=== PATIENT | male | born 1960 | race Caucasian/White ===

== ENCOUNTER 2021-06-29 07:28 | Day surgery (SDC) | payer OTHER, SELFPAY ==
[2021-06-22 14:57] VITALS: BMI 28.4
--- NOTE | 2021-06-28 12:51 | HO.ANESPROP2 ---
Documented by User: Giselle Lopez NP 06/28/21 12:52 HPI - Anesthesia Eval Consult details Narrative: 61yo M for Colonoscopy [facility] Past Medical History Medical History (Updated 06/22/21 @ 14:48 by Mary Garcia RN) Myeloproliferative disorder Prostate cancer Surgical History Surgical History (Updated 06/22/21 @ 14:48 by Mary Garcia RN) History of prostate surgery Hx of lumbar discectomy Social History Social History (Updated 06/29/21 @ 08:25 by Kyara Bajwa MD) Patient Tobacco Use Status: Current everyday Tobacco user Tobacco use type: Cigarette Cigarette Packs Per Day: 1 Cigarettes Per Day: 20.0 Smoked in Last 30 Days: Yes Advance Directives: No Advance Directives Information Provided: Yes (informational brochure mailed) Advance Directives on File: No Meds Allergies Allergy/AdvReac Type Severity Reaction Status Date / Time bee pollen [bee stings] Allergy Unknown Unknown Verified 06/22/21 14:48 Home Medications Medication Instructions Recorded Confirmed Last Taken Type aspirin 325 mg tablet 325 mg PO DAILY 06/22/21 06/22/21 Unknown History Exam Exam Date and Time: June 28, 2021 1251 Height,Weight and Vital Signs: Height 5 ft 11 in Weight 92.533 kg Assessment and Plan Assessment Anesthesia Assessment: Chart Reviewed Documented by User: Kyara Bajwa MD 06/29/21 08:25 [facility] Past Medical History Medical History (Updated 06/22/21 @ 14:48 by Mary Garcia RN) Myeloproliferative disorder Prostate cancer Family History Family history of problems with anesthesia: No Surgical History Surgical History (Updated 06/22/21 @ 14:48 by Mary Garcia RN) History of prostate surgery Hx of lumbar discectomy History of Problems with Anesthesia: No Social History Social History (Updated 06/29/21 @ 08:25 by Kyara Bajwa MD) Patient Tobacco Use Status: Current everyday Tobacco user Tobacco use type: Cigarette Cigarette Packs Per Day: 1 Cigarettes Per Day: 20.0 Smoked in Last 30 Days: Yes Advance Directives: No Advance Directives Information Provided: Yes (informational brochure mailed) Advance Directives on File: No Meds Allergies Allergy/AdvReac Type Severity Reaction Status Date / Time bee pollen [bee stings] Allergy Unknown Unknown Verified 06/22/21 14:48 Home Medications Medication Instructions Recorded Confirmed Last Taken Type aspirin 325 mg tablet 325 mg PO DAILY 06/22/21 06/22/21 Unknown History Exam Height,Weight and Vital Signs: Height 5 ft 11 in Weight 92.533 kg Vital Signs Temp Pulse Resp BP Pulse Ox 06/29/21 08:00 98.1 F 86 18 120/89 95 Airway Mallampati Class: III (Overbite) TM Dist: >3cm Neck ROM: Full Loose/Missing/Broken Teeth: Yes (Some broken) Heart: RRR Lungs: CTAB Assessment and Plan Assessment Anesthesia Assessment: Anesthesia Plan Discussed Final Anesthetic Review Family History of Problems with Anesthesia: No History of Problems with Anesthesia: No NPO: Yes ASA Class: II Final Preanesthetic Review: No Changes in Pt Med Stat, Meds/Allgs Chart Reviewed, Consent Obtained/Reviewed and Anes Risks/Benef Reviewed Patient Risk: Low Procedure Risk: Low Assessment/Block/Sedation in SS: Assess/Block/Sedation-SS Anesthetic Plan Anesthetic Plan: MAC: Disposition: Standard PACU
[2021-06-29 08:00] VITALS: BP 120/89; PULSE 86; RESP 18; TEMP 36.7; O2SAT 95
[2021-06-29] MEDS: Lactated Ringers 1,000 ML 100 ML IVCONT (08:07)
--- NOTE | 2021-06-29 09:07 | MHC.SHP ---
Pre-Procedural Eval Section A Date of Service: 06/29/21 The patient is an INPATIENT: No Changes since office visit: No Cold of Flu in the past 2 weeks, No New Medical Problems, No Changes in Medication and No Patient answered all questions The History & Physical has been completed within 30 days and I have reviewed it.: Yes Section B Chief Complaint: screening Allergies: Allergies Allergy/AdvReac Type Severity Reaction Status Date / Time bee pollen [bee stings] Allergy Unknown Unknown Verified 06/22/21 14:48 Plan I have reviewed the history and physical and performed a pertinent physical examination on my patient. No changes have occurred unless specified.
[2021-06-29 10:46] VITALS: BP 116/79; PULSE 71; RESP 16; TEMP 36.3; O2SAT 98
--- NOTE | 2021-06-29 10:50 | P.BOP_ITS ---
Brief Operative Note Date of Service: 06/29/21 Pre-op diagnosis: screening Post-op diagnosis: same (colon polyps) Procedure: colonoscopy Surgeon: Joe Bundy Anesthesia: MAC Was an Photographic Intelligence Officer used for this Procedure?: No Estimated blood loss (mL): 5 Pathology: other (multiple polyps, see path request) Condition: stable Disposition: PACU
[2021-06-29 11:01] VITALS: BP 131/87; PULSE 65; RESP 16; TEMP 36.3; O2SAT 97
--- NOTE | 2021-06-29 11:15 | OP_ITS ---
SURGEON: Joe Bundy MD PREOPERATIVE DIAGNOSIS: POSTOPERATIVE DIAGNOSIS: PROCEDURE PERFORMED: ESTIMATED BLOOD LOSS: COMPLICATIONS: ANESTHESIA: ASSISTANTS: SPECIMENS: PROCEDURES PERFORMED: Colonoscopy to the terminal ileum with snare polypectomy, cauterization of colon polyp, endoscopic clip placement, and Renee ink injection. MEDICATIONS: Monitored anesthesia care. DESCRIPTION OF PROCEDURE: History and physical performed. The risks and benefits of the procedure were explained to the patient. Informed consent was obtained. The patient was placed in the left lateral decubitus position. A digital rectal examination was performed and was found to be normal. The Olympus pediatric video colonoscope was introduced into the rectum and advanced to the cecum without difficulty. The cecum was identified by transillumination, palpation, and identification of ileocecal valve. Examination was performed and the scope was removed. He tolerated the procedure well and was taken to recovery area in stable condition. The procedure was extended and difficult due to the large number of polyps, which required removal in piecemeal fashion and with a Renteria net, requiring multiple re-insertion and withdrawals of the colonoscope. FINDINGS: There were multiple colonic polyps present throughout the colon. A total of approximately 18 were removed using combination of snare cautery and piecemeal resection. The largest measured approximately 2.5 cm and was located at approximately 55 cm and required piecemeal resection recovery with a Renteria net and the site was marked with Renee ink for aiding in identification should further evaluation be necessary. One endoscopic clip was placed to close the mucosal defect following resection. There was no bleeding at any of the polypectomy sites at the termination of the procedure. In the rectum, three polyps were seen, 2 removed and the third was cauterized. Please see the pathology requisition for the location of the multiplle other polyps. There was mild sigmoid diverticulosis. Retroflexed examination showed small to moderate-sized internal hemorrhoids. IMPRESSION: 1. Colon polyps. 2. Extended/difficult procedure. RECOMMENDATIONS: 1. Follow up the biopsy results. 2. Consider repeat examination in 12 months pending pathology. MD ALHAJI Duran/FIFI / [id number] MTDD
== END 2021-06-29 11:25 | disposition home or self-care (01) ==
PROVIDERS: PCP Internal Medicine; Visit Provider Internal Medicine Gastroenterology
PROC: 0DJD8ZZ Inspection of Lower Intestinal Tract, Via Natural or Artificial Opening Endoscopic (ICD-10-PCS; CPT 45378; principal; 2021-06-29 09:10)
DX: Z12.11 Encounter for screening for malignant neoplasm of colon (principal); D12.3 Benign neoplasm of transverse colon; D12.4 Benign neoplasm of descending colon; D12.5 Benign neoplasm of sigmoid colon; D12.8 Benign neoplasm of rectum; C94.6 Myelodysplastic disease, not elsewhere classified; Z79.82 Long term (current) use of aspirin; Z85.46 Personal history of malignant neoplasm of prostate; F17.210 Nicotine dependence, cigarettes, uncomplicated
CPT/HCPCS: 45385; 45384; 45381; 88305

== ENCOUNTER 2021-11-04 08:53 | Outpatient (REF) | payer OTHER, SELFPAY ==
[2021-11-04 09:10] LABS: MANUAL DIFF FLAG NO
[2021-11-04 10:03] LABS: Basophils Absolute Auto 0.1 X10*3/uL (0.0-0.2); Basophils Percent Auto 0.9 % (0-2); Eosinophils Absolute Auto 0.3 X10*3/uL (0.0-0.4); Eosinophils Percent Auto 3.3 % (0-4); Hematocrit 44.4 % (42.0-52.0); Hemoglobin 13.6 g/dl (14.0-18.0); Imm Gran Abs Auto 0.02 X10*3/uL (0.00-0.03); Imm Gran Pct Auto 0.2 % (0.0-0.4); Lymphocytes Absolute Auto 2.5 X10*3/uL (1.2-4.9); Lymphocytes Percent Auto 28.3 % (20-40); Mean Corpuscular HGB Conc 30.6 g/dl (31.0-36.0); Mean Corpuscular Hemoglobin 26.6 pg (27.0-33.0); Mean Corpuscular Volume 86.7 fL (80.0-98.0); Mean Platelet Volume 11.9 fL (9.4-12.4); Monocytes Percent Auto 11.6 % (2-11); Neutrophils Absolute Auto 4.9 x10*3/uL (2.0-8.3); Neutrophils Percent Auto 55.7 % (45-73); Platelet Count 302 X10*3/uL (160-400); Red Blood Count 5.12 X10*6/uL (4.60-5.80); Red Cell Distribution Width 13.8 % (11.0-16.0); White Blood Count 8.8 X10*3/uL (4.8-10.8)
[2021-11-04 10:41] LABS: Alanine Aminotransferase 19 U/L (0-40); Albumin Level 4.3 g/dL (3.5-5.0); Alkaline Phosphatase 96 U/L (39-117); Anion Gap 13 (12-20); Aspartate Amino Transferase 15 U/L (5-37); Bilirubin Total 0.6 mg/dL (0.0-1.0); Blood Urea Nitrogen 15 mg/dL (9-16); Calcium 10.4 mg/dL (8.4-10.2); Carbon Dioxide 24 mmol/L (22-29); Chloride 105 mmol/L (96-108); Cholesterol 229 mg/dL; Estimated Glomerular Filt Rate > 60; Glucose Fasting 95 mg/dL (60-99); HDL Cholesterol 35 mg/dL; Iron 31 mcg/dL (45-160); LDL Cholesterol Calculated 164 mg/dl; Percent Iron Saturation 6 % (15-50); Potassium 5.2 mmol/L (3.3-5.1); Sodium 137 mmol/L (135-145); Total Iron Binding Capacity 502 mcg/dL (228-428); Total Protein 7.6 g/dL (6.5-8.0); Triglycerides 152 mg/dL; Unsaturated Iron Binding 471 ug/dL
[2021-11-04 10:53] LABS: Ferritin 10 ng/mL (20-250)
== END 2021-11-04 08:54 | disposition home or self-care (01) ==
LOC: HO.LAB 08:53
PROVIDERS: PCP Internal Medicine; Visit Provider Internal Medicine
DX: D75.1 Secondary polycythemia (principal); J44.9 Chronic obstructive pulmonary disease, unspecified; E78.00 Pure hypercholesterolemia, unspecified
CPT/HCPCS: 36415; 80053; 80061; 82728; 83540; 85025

== ENCOUNTER 2021-12-31 14:46 | Outpatient (REF) | payer OTHER, SELFPAY ==
--- NOTE | ~2021-12-31 | CT_ITS ---
EXAMINATION: CT CHEST SCREENING CLINICAL INFORMATION: Current smoker. 50 pack year history. COMPARISON: None. TECHNIQUE: Multidetector volumetric CT imaging of the chest is performed without contrast using low dose technique. Additional 2D coronal and sagittal reformatted images and axial 3D maximum intensity projection (MIP) images are generated on the CT workstation. This CT examination was performed using dose optimization techniques as appropriate, variously including the following: *Automated exposure control *Adjustment of mA and/or kV according to patient size (this includes techniques or standardized protocols for targeted exams where dose is matched to indication/reason for exam; i.e. extremities or head) *Use of iterative reconstruction technique DLP: 66 mGy-cm FINDINGS: LUNGS: There is subsegmental atelectasis at the lung bases. The lungs are otherwise clear. No endobronchial or endotracheal lesion. MEDIASTINUM: Coronary artery calcification. The mediastinum is otherwise normal. PLEURA: There is no pleural effusion. No pleural mass or thickening. AXILLA: No lymphadenopathy. UPPER ABDOMEN: There is a small low-attenuation lesion at the junction of the medial segment the left lobe and anterior segment of the right lobe of the liver. This probably represents a cyst. OSSEOUS STRUCTURES: There is a mild T12 vertebral body compression fracture. CT/CT lung screening IMPRESSION: Subsegmental atelectasis at the lung bases. Coronary artery calcification. Mild T12 compression fracture. ASSESSMENT: Lung-RADS category 1: Negative RECOMMENDATION: Annual low-dose chest CT follow-up recommended.
== END 2021-12-31 14:47 | disposition home or self-care (01) ==
LOC: HO.CT 14:46
PROVIDERS: Visit Provider Physician Assistant Medical
DX: Z12.2 Encounter for screening for malignant neoplasm of respiratory organs (principal); F17.210 Nicotine dependence, cigarettes, uncomplicated
CPT/HCPCS: 71271; G0296

== ENCOUNTER 2022-05-11 08:15 | Outpatient (REF) | payer OTHER, SELFPAY ==
[2022-05-11 09:44] LABS: Alanine Aminotransferase 19 U/L (0-40); Albumin Level 4.3 g/dL (3.5-5.0); Alkaline Phosphatase 77 U/L (39-117); Anion Gap 15 (12-20); Aspartate Amino Transferase 16 U/L (5-37); Bilirubin Total 0.3 mg/dL (0.0-1.0); Blood Urea Nitrogen 8 mg/dL (9-16); Calcium 10.2 mg/dL (8.4-10.2); Carbon Dioxide 26 mmol/L (22-29); Chloride 104 mmol/L (96-108); Cholesterol 217 mg/dL; Estimated Glomerular Filt Rate > 60; Glucose Random 88 mg/dL (60-115); HDL Cholesterol 38 mg/dL; LDL Cholesterol Calculated 157 mg/dl; Potassium 5.4 mmol/L (3.3-5.1); Sodium 140 mmol/L (135-145); Total Protein 7.3 g/dL (6.5-8.0); Triglycerides 113 mg/dL
== END 2022-05-11 08:16 | disposition home or self-care (01) ==
LOC: HO.LAB 08:15
PROVIDERS: PCP Internal Medicine; Visit Provider Internal Medicine
DX: E78.00 Pure hypercholesterolemia, unspecified (principal); J44.9 Chronic obstructive pulmonary disease, unspecified
CPT/HCPCS: 36415; 80053; 80061

== ENCOUNTER 2022-08-31 09:11 | Outpatient (REF) | payer OTHER, SELFPAY ==
[2022-08-31 10:23] LABS: Cholesterol 235 mg/dL; HDL Cholesterol 42 mg/dL; LDL Cholesterol Calculated 170 mg/dl; Triglycerides 116 mg/dL
== END 2022-08-31 09:12 | disposition home or self-care (01) ==
LOC: HO.LAB 09:11
PROVIDERS: PCP Internal Medicine; Visit Provider Internal Medicine
DX: E78.00 Pure hypercholesterolemia, unspecified (principal)
CPT/HCPCS: 36415; 80061

== ENCOUNTER 2022-11-15 07:50 | Day surgery (SDC) | payer OTHER, SELFPAY ==
[2022-11-15 08:41] VITALS: BMI 27.8
[2022-11-15 08:45] VITALS: BP 128/89; PULSE 92; RESP 18; TEMP 36.6; O2SAT 100
[2022-11-15] MEDS: Lactated Ringers 1,000 ML 50 ML IVCONT (09:01)
--- NOTE | 2022-11-15 09:02 | P.CONAN_ITS ---
HPI - Anesthesia Eval Consult details Narrative: colonoscopy COUNTS INCLUDE 234 BEDS AT THE [facility] Active Problems Active Problems: All Active Problems (Updated 11/14/22 @ 14:27 by Gail Martinez RN) Tubular adenoma of colon (Acute ~2020) Personal history of nicotine dependence (Acute) Past Medical History Medical History (Updated 11/14/22 @ 14:27 by Gail Martinez RN) Congenital bicuspid aortic valve History of prostate cancer Myeloproliferative disorder Personal history of nicotine dependence Tubular adenoma of colon (~2020) Family History Family history of problems with anesthesia: No Surgical History Surgical History (Updated 12/31/21 @ 14:39 by Zoe Marsh PA-C) History of colonoscopy (~2020) History of left inguinal hernia repair (~2021) History of lumbar discectomy (~1986) History of robot-assisted laparoscopic radical prostatectomy (~2018) History of Problems with Anesthesia: No Social History Social History (Updated 12/31/21 @ 14:45 by Zoe Marsh PA-C) Patient Tobacco Use Status: Current everyday Tobacco user Tobacco use type: Cigarette Cigarette Packs Per Day: 1 Cigarettes Per Day: 20.0 Years Smoked: onset 17, 1ppd x 44yrsm 40pyh Date Education Initiated: 11/15/22 Use of substances other than those prescribed or required for medical reasons: No Are you DNR?: No Advance Directives: No Advance Directives Information Provided: Yes Meds Allergies Allergy/AdvReac Type Severity Reaction Status Date / Time bee pollen [bee stings] Allergy Unknown Unknown Verified 06/22/21 14:48 Active Medications: Current Medications Lactated Ringer's (Lr) 1,000 mls @ 50 mls/hr IVCONT .Q20H SHAUN Last Admin: 11/15/22 09:01 Dose: 50 mls/hr Home Medications Medication Instructions Recorded Confirmed Last Taken Type aspirin 325 mg tablet 325 mg PO DAILY 06/22/21 11/15/22 Unknown History Exam Exam Date and Time: November 15, 2022901 Height,Weight and Vital Signs: Height 5 ft 11 in Weight 90.718 kg Last Vital Signs Temp 97.9 F 11/15/22 08:45 Pulse 92 11/15/22 08:45 Resp 18 11/15/22 08:45 BP 128/89 11/15/22 08:45 Pulse Ox 100 11/15/22 08:45 O2 Del Method Room Air 11/15/22 08:45 Airway Mallampati Class: II TM Dist: >3cm Neck ROM: Full Heart: rrr Lungs: cta Assessment and Plan Assessment Anesthesia Assessment: Anesthesia Plan Discussed, Smoking Cess. Discussed and Chart Reviewed Final Anesthetic Review Family History of Problems with Anesthesia: No History of Problems with Anesthesia: No NPO: Yes ASA Class: II Final Preanesthetic Review: No Changes in Pt Med Stat, Consent Obtained/Reviewed and Anes Risks/Benef Reviewed Patient Risk: Intermediate Procedure Risk: Low Anesthetic Plan Anesthetic Plan: MAC: Disposition: Standard PACU
--- NOTE | 2022-11-15 09:53 | P.BOP_ITS ---
Brief Operative Note Date of Service: 11/15/22 Pre-op diagnosis: screening Post-op diagnosis: same Surgeon: Joe Bundy Anesthesia: MAC Was an Cardiopulmonary Technician used for this Procedure?: No Estimated blood loss (mL): 2 Pathology: other Condition: stable Disposition: PACU
[2022-11-15 09:55] VITALS: BP 95/63; PULSE 79; RESP 16; TEMP 36.3; O2SAT 94
[2022-11-15 10:10] VITALS: BP 115/74; PULSE 84; RESP 16; O2SAT 99
[2022-11-15 10:17] VITALS: BP 117/80; PULSE 72; RESP 16; TEMP 36.5; O2SAT 97
--- NOTE | 2022-11-15 10:28 | OP_ITS ---
DATE OF SERVICE: 11/15/2022 SURGEON: Joe Bundy MD INDICATIONS: Colon cancer screening and prior history of adenomatous colon polyps. PREOPERATIVE DIAGNOSIS: POSTOPERATIVE DIAGNOSIS: PROCEDURE PERFORMED: Colonoscopy to the terminal ileum with snare polypectomy. ESTIMATED BLOOD LOSS: COMPLICATIONS: ANESTHESIA: Monitored anesthesia care. ASSISTANTS: SPECIMENS: DESCRIPTION OF PROCEDURE: A history and physical was performed. The risks and benefits of the procedure were explained to the patient. Informed consent was obtained. The patient was placed in the left lateral decubitus position. A digital rectal exam was performed and was found to be normal. The Olympus pediatric video colonoscope was introduced into the rectum and advanced to the cecum without difficulty. The cecum was identified by transillumination, palpation, and identification of ileocecal valve. Examination was performed. The scope was removed. He tolerated the procedure well and was returned to the recovery area in stable condition. FINDINGS: The terminal ileum was examined and appeared normal. The visualized colonic mucosa was normal. There was a single polyp measuring approximately 8 mm at 55 cm, which was removed with a hot snare and recovered via suction. No other polyps were identified. Retroflexed examination showed internal hemorrhoids. There was mild sigmoid diverticulosis. The quality of the prep was good. IMPRESSION: Colon polyp. RECOMMENDATION: Follow up the biopsy results. MD ALHAJI Duran/NILDAL / [id number]
== END 2022-11-15 10:40 | disposition home or self-care (01) ==
PROVIDERS: PCP Internal Medicine; Visit Provider Internal Medicine Gastroenterology
PROC: 0DJD8ZZ Inspection of Lower Intestinal Tract, Via Natural or Artificial Opening Endoscopic (ICD-10-PCS; CPT 45378; principal; 2022-11-15 09:20)
DX: Z12.11 Encounter for screening for malignant neoplasm of colon (principal); Z86.010 Personal history of colon polyps; Z80.0 Family history of malignant neoplasm of digestive organs; D12.5 Benign neoplasm of sigmoid colon; K57.30 Diverticulosis of large intestine without perforation or abscess without bleeding; K64.8 Other hemorrhoids; D47.1 Chronic myeloproliferative disease; D75.839 Thrombocytosis, unspecified; Q23.1 Congenital insufficiency of aortic valve; Z79.82 Long term (current) use of aspirin; Z85.46 Personal history of malignant neoplasm of prostate; F17.210 Nicotine dependence, cigarettes, uncomplicated
CPT/HCPCS: 45385; 88305

== ENCOUNTER 2022-12-07 10:59 | Outpatient (REF) | payer OTHER, SELFPAY ==
[2022-12-07 12:43] LABS: Alanine Aminotransferase 15 U/L (0-40); Albumin Level 4.1 g/dL (3.5-5.0); Alkaline Phosphatase 82 U/L (39-117); Anion Gap 13 (12-20); Aspartate Amino Transferase 16 U/L (5-37); Bilirubin Total 0.5 mg/dL (0.0-1.0); Blood Urea Nitrogen 10 mg/dL (9-16); Calcium 9.5 mg/dL (8.4-10.2); Carbon Dioxide 26 mmol/L (22-29); Chloride 107 mmol/L (96-108); Estimated Glomerular Filt Rate > 60; Glucose Random 83 mg/dL (60-115); Sodium 141 mmol/L (135-145)
== END 2022-12-07 11:00 | disposition home or self-care (01) ==
LOC: HO.LAB 10:59
PROVIDERS: PCP Internal Medicine; Visit Provider Internal Medicine
DX: E78.00 Pure hypercholesterolemia, unspecified (principal); J44.9 Chronic obstructive pulmonary disease, unspecified
CPT/HCPCS: 36415; 80053

== ENCOUNTER 2023-01-02 09:28 | Outpatient (REF) | payer OTHER, SELFPAY ==
--- NOTE | ~2023-01-02 | CT_ITS ---
EXAMINATION: CT CHEST SCREENING CLINICAL INFORMATION: Current smoker 50 pack year history COMPARISON: Previous chest CT December 2021 TECHNIQUE: Multidetector volumetric CT imaging of the chest is performed without contrast using low dose technique. Additional 2D coronal and sagittal reformatted images and axial 3D maximum intensity projection (MIP) images are generated on the CT workstation. This CT examination was performed using dose optimization techniques as appropriate, variously including the following: *Automated exposure control *Adjustment of mA and/or kV according to patient size (this includes techniques or standardized protocols for targeted exams where dose is matched to indication/reason for exam; i.e. extremities or head) *Use of iterative reconstruction technique DLP: 57 mGy-cm FINDINGS: LUNGS: No pulmonary nodule. Scarring or chronic subsegmental atelectasis at the lung bases. MEDIASTINUM: The mediastinum is normal. CORONARY ARTERY CALCIFICATION: Moderate. Aortic valve calcification. Upper normal-size thoracic aorta. PLEURA: There is no pleural effusion. No pleural mass or thickening. AXILLA: No lymphadenopathy. UPPER ABDOMEN: Stable low-attenuation liver lesion probably representing a cyst. OSSEOUS STRUCTURES: Unremarkable. CT/CT lung screening IMPRESSION: Stable mild T12 compression fracture. ASSESSMENT: Lung-RADS category 1: Negative RECOMMENDATION: Annual low-dose chest CT follow-up recommended.
== END 2023-01-02 09:29 | disposition home or self-care (01) ==
LOC: HO.CT 09:28
PROVIDERS: PCP Internal Medicine; Visit Provider Physician Assistant Medical
DX: Z12.2 Encounter for screening for malignant neoplasm of respiratory organs (principal); F17.210 Nicotine dependence, cigarettes, uncomplicated
CPT/HCPCS: 71271

== ENCOUNTER → 2024-05-02 12:52 | Outpatient (BNV) | payer OTHER, SELFPAY | PROVIDERS: PCP Internal Medicine; Visit Provider Physical Medicine & Rehabilitation | DX: G56.03 Carpal tunnel syndrome, bilateral upper limbs (principal); G56.22 Lesion of ulnar nerve, left upper limb | CPT/HCPCS: 95886; 95911 ==

== ENCOUNTER 2024-05-02 12:53 | Outpatient (REF) | payer OTHER, SELFPAY ==
--- NOTE | 2024-05-02 | EMG_ITS ---
Chief complaint: Bilateral hand numbness and poor dexterity, history of prostate cancer status post surgery, awaiting radiation Reason for referral: Evaluate for Carpal Tunnel Syndrome Referred by: Dr. Smith Procedure done: Bilateral upper extremities NCS/EMG Precautions and/or limitations: None The limb temperature was monitored continuously and remained between 32-36 degrees C during the performance of the NCS. Ulnar motor NCS was performed with moderate elbow flexion between 70-90 degrees, with across-elbow distance of 10 cm. Nerve Conduction Studies Anti Sensory Summary Table ?Stim Site NR Onset (ms) Norm Onset (ms) Peak (ms) Norm Peak (ms) O-P Amp (?V) Norm O-P Amp Site1 Site2 Delta-0 (ms) Dist (cm) Celso (m/s) Norm Celso (m/s) Left Median Anti Sensory (2nd Digit) Wrist NR <3.6 >10 Wrist 2nd Digit 14.0 Right Median Anti Sensory (2nd Digit) Wrist NR <3.6 >10 Wrist 2nd Digit 14.0 Right Radial Anti Sensory (Thumb) Forearm ? 1.6 2.1 <3.1 8.8 Forearm Thumb 1.6 0.0 Left Ulnar Anti Sensory (5th Digit) Wrist NR <3.7 >15.0 Wrist 5th Digit 14.0 Right Ulnar Anti Sensory (5th Digit) Wrist ? 2.3 3.1 <3.7 20.8 >15.0 Wrist 5th Digit 2.3 14.0 61 Motor Summary Table ?Stim Site NR Onset (ms) Norm Onset (ms) O-P Amp (mV) Norm O-P Amp iAmp (mV) Amp (1st) (%) Site1 Site2 Delta-0 (ms) Dist (cm) Celso (m/s) Norm Celso (m/s) Left Median Motor (Abd Poll Brev) Wrist ? 13.8 <3.9 0.5 >4.5 0.7 100.0 Elbow Wrist 5.4 25.0 46 >45 Elbow ? 19.2 0.4 0.6 80.0 Right Median Motor (Abd Poll Brev) Wrist NR <3.9 >4.5 Elbow Wrist 0.0 >45 Elbow NR Right Ulnar Motor (Abd Dig Minimi) Wrist ? 3.0 <3.0 6.4 >5 8.0 100.0 B Elbow Wrist 4.3 24.0 56 >45 B Elbow ? 7.3 6.0 7.7 93.8 A Elbow B Elbow 3.6 10.0 28 >45 A Elbow ? 10.9 5.9 7.3 92.2 Right Ulnar Motor (Abd Dig Minimi) Wrist ? 2.6 <3.0 8.4 >5 11.1 100.0 B Elbow Wrist 3.6 22.0 61 >45 B Elbow ? 6.2 8.2 10.9 97.6 A Elbow B Elbow 1.5 10.0 67 >45 A Elbow ? 7.7 7.9 10.8 94.0 EMG ?Side Muscle Nerve Root Ins Act Fibs Psw Amp Dur Poly Recrt Int Pat Comment Right 1stDorInt Ulnar C8-T1 Nml Nml Nml Nml Nml 0 Nml Complete Right FlexCarRad Median C6-7 Nml Nml Nml Nml Nml 0 Nml Complete Right Biceps Musculocut C5-6 Nml Nml Nml Nml Nml 0 Nml Complete Right Triceps Radial C6-7-8 Nml Nml Nml Nml Nml 0 Nml Complete Right Deltoid Axillary C5-6 Nml Nml Nml Nml Nml 0 Nml Complete Left 1stDorInt Ulnar C8-T1 Incr 1+ 1+ Incr Incr 0 Nml Complete Left Biceps Musculocut C5-6 Nml Nml Nml Nml Nml 0 Nml Complete Left Triceps Radial C6-7-8 Nml Nml Nml Nml Nml 0 Nml Complete Left Deltoid Axillary C5-6 Nml Nml Nml Nml Nml 0 Nml Complete Left FlexCarpiUln Ulnar C8,T1 Nml Nml Nml Nml Nml 0 Nml Complete FINDINGS: Right median motor and sensory nerves no responses. Left median motor nerve showed prolonged distal latency, small amplitude and normal conduction velocity. Left ulnar motor nerve showed normal distal latency, normal amplitude and slow conduction velocity across the elbow. Bilateral median sensory nerves absent response. Right ulnar sensory nerve absent response. All other nerves tested were within normal. Concentric needle EMG was performed in selected muscles of the bilateral upper extremities. Study revealed signs of electric abnormalities as shown in the table above. Left FDI showed increased insertional activity, PSWs, fibrillations, and increased duration and amplitude. IMPRESSION: 1. This is an abnormal study. 2. There is electrodiagnostic evidence for right severe and left moderate-severe median neuropathy at the wrist, consistent with Carpal Tunnel Syndrome. 3. There is electrodiagnostic evidence for left ulnar neuropathy at the elbow, 4. There is no electrodiagnostic evidence for brachial plexopathy or cervical radiculopathy. Thank you for your kind referral. Leah Hernandez MD, ANDRES Board Certified, [employer] and [employer] (ABPMR) Board Certified, [employer] Electro[employer] (ABEM) CODIN [phone] MTDD
== END 2024-05-02 12:54 | disposition home or self-care (01) ==
LOC: HO.NEURO 12:53
PROVIDERS: PCP Internal Medicine; Visit Provider Internal Medicine
DX: R20.2 Paresthesia of skin (principal)
CPT/HCPCS: 95886; 95911

== ENCOUNTER 2025-01-17 10:26 | Outpatient (AMB) | payer OTHER, SELFPAY ==
--- NOTE | 2025-01-17 10:42 | MHC.PC.OV ---
Vital Signs 01/17/25 10:45 Height 5 ft 10.5 in Weight 191 lb BMI 27.0 BP 130/80 Blood Pressure Location Rt brachial Position Sitting Pulse 78 Pulse Source Pulse Oximeter Temp 98.2 F Temp Source Axillary Pulse Oximetry (%) 98 Oxygen Delivery Method Room Air Intake Visit Reasons: Routine Media Account Executive Required: No Accompanied by: Self / Same As Patient Allergies bee pollen [bee stings] Allergy (Unknown, Verified 01/17/25 10:48) Unknown Tobacco use date assessed: 01/17/25 Dental Screening Dental Screen Date: 01/17/25 Did you have a dental visit in the last 12 months?: Yes Did you have a dental problem in the last 6 months where you did not have access to dental care?: No HPI HPI Comments History of Present Illness Details 64 year old with a past medical history of COPD, tobacco use, prostate cancer, MDS, PV, , hyperlipidemia, h/o back surgery presenting for follow up. Last seen by pcp in Jul CV: On ASA. Echocardiogram scheduled for January [address] Mejía on the . Heme/onc: prostate ca with h/o radiation therapy-Dr Law (rad once) 2023-next appt apr, Dr Lawrence. MDS, PV Followed by Marco at [facility]-mar 26. Recent psa was good. Having some cough, congestion, more shortness of breath since a cold a few months back MSK: history of lumbar diskectomy with increased low back pain over the past few years. previously seeing Dr fatima LDCT-missed last year plans to do it this year. Colonoscopy 11/2022-[address] Bundy ROS see HPI PHYSICAL EXAM: GENERAL: Alert and oriented x 3. NAD EYES: EOMI. Anicteric. HENT: Moist mucous membranes. No scleral icterus. No cervical lymphadenopathy. LUNGS: Clear to auscultation bilaterally. CARDIOVASCULAR: Regular rate and rhythm. systolic murmur ABDOMEN: Soft, non-tender +bs EXTREMITIES: No edema. Non-tender. SKIN: No rashes or lesions. Warm. NEUROLOGIC: No focal neurological deficits. CN II-XII grossly intact PSYCHIATRIC: Cooperative. Appropriate mood and affect [facility] Medical History (Updated 01/17/25 @ 11:17 by Susan Dawson MD) History of prostate cancer Myeloproliferative disorder Congenital bicuspid aortic valve Tubular adenoma of colon (~2020) Nicotine dependence, cigarettes, uncomplicated Surgical History History of left inguinal hernia repair (~2021) History of robot-assisted laparoscopic radical prostatectomy (~2018) History of colonoscopy (~11/15/22) History of lumbar discectomy (~1986) Family History Mother No problems noted. Father No problems noted. Social History Housing: House Patient Tobacco Use Status: Current everyday Tobacco user Tobacco use type: Cigarette Cigarette Packs Per Day: 1 Cigarettes Per Day: 20.0 Years Smoked: onset 17, 1ppd x 44yrsm 40pyh e-Cigarette/Vaping Use: Currently Using service: No Current occupational status: retired Cognitive needs: No Hearing needs: Yes (both hear hearing aids. ) Vision needs: No Questionnaire PHQ-9 Over the last 2 weeks, how often have you been bothered by any of the following problems? 1. Little interest or pleasure in doing things: not at all 2. Feeling down, depressed, or hopeless: not at all 3. Trouble falling or staying asleep, or sleeping too much: not at all 4. Feeling tired or having little energy: not at all 5. Poor appetite or overeating: not at all 6. Feeling bad about yourself - or that you are a failure or have let yourself or your family down: not at all 7. Trouble concentrating on things, such as reading the newspaper or watching television: not at all 8. Moving or speaking so slowly that other people could have noticed. Or the opposite - being so fidgety or restless that you have been moving around a lot more than usual: not at all 9. Thoughts that you would be better off or of hurting yourself in some way: not at all Total score: 0 Source: Developed by Drs. David Guerrero, Roselyn Nuñez, Norbert Amador and colleagues, with an educational ayla from [employer]. Thrive Questionnaire Date Thrive assessed: 01/17/25 I am a: Patient Within the past 12 months, did the food you bought not last and you didn't have the money to get more?: Never true Within the past 12 months, did you worry whether your food would run out before you got money to buy more?: Never true Do you have trouble paying for medicines?: No Do you have trouble getting transportation to medical appointments?: No Do you have trouble paying your heating and electricity bill?: No Do you have trouble taking care of your child, family member or friend?: No Do you have trouble with day-to-day activities such as bathing, preparing meals, shopping, managing finances, etc.?: No Are you currently unemployed and looking for a job?: No Are you interested in more education?: No THRIVE Score: 0 AUDIT C Alcohol Use Questionnaire (AUDIT-C) 1. How often do you have a drink containing alcohol?: Monthly or less 2. How many drinks containing alcohol do you have on a typical day when you are drinking?: 1 or 2 3. How often do you have six or more drinks on one occasion?: Less than monthly Total Score: 2 XUAN-7 AMB Questionnaire XUAN-7 Date XUAN - 7 assessed: 01/17/25 Feeling nervous, anxious, or on edge: 0 = Not at all Not being able to stop or control worryin = Not at all Worrying too much about different things: 0 = Not at all Trouble relaxin = Not at all Being so restless that it is hard to sit still: 0 = Not at all Becoming easily annoyed or irritable: 0 = Not at all Feeling afraid as if something awful might happen: 0 = Not at all Total XUAN-7 score (0-4 normal; 5-9 mild; 10-14 moderate; 15-21 severe): 0 Source: Developed by Drs. David Guerrero, Roselyn Nuñez, Norbert Amador and colleagues, with an educational ayla from [employer]. Physical exam (Primary Care) Vital Signs: Last Vital Signs Temp 98.2 F 01/17/25 10:45 Pulse 78 01/17/25 10:45 BP 130/80 01/17/25 10:45 Pulse Ox 98 01/17/25 10:45 Oxygen Delivery Method Room Air 01/17/25 10:45 BMI result Body Mass Index 27.0 Tobacco/Smoking Status: Tobacco use Status Tobacco use date assessed 01/17/25 01/17/25 10:45 Patient Tobacco Use Status Current everyday Tobacco 01/17/25 10:45 Tobacco use type Cigarette 01/17/25 10:45 e-Cigarette/Vaping Use Currently Using 01/17/25 10:45 PHQ-9: PHQ-9 Score PHQ-9: Total score 0 01/17/25 10:45 Thrive Assessment: Date of Thrive Assessment Date Thrive assessed 01/17/25 01/17/25 10:45 Coding Level of Care Code New Pt Level 4 (75983) Complex EM visit Add On G2211 Diagnoses Chronic low back pain, unspecified back pain laterality, unspecified whether sciatica present M54.50; G89.29 Chronicity: chronic Back pain laterality: unspecified Sciatica presence: unspecified whether sciatica present Mild intermittent asthma with acute exacerbation J45.21 Asthma severity: mild Asthma persistence: intermittent Asthma complication type: with acute exacerbation Congenital bicuspid aortic valve Q23.1 Myeloproliferative disorder D47.1 Assessment & Plan Assessment & Plan (1) Low back pain: Code(s): M54.50 - Low back pain, unspecified Category: Medical Qualifiers: Chronicity: chronic Back pain laterality: unspecified Sciatica presence: unspecified whether sciatica present Qualified Code(s): M54.50 - Low back pain, unspecified; G89.29 - Other chronic pain (2) Asthma: Code(s): J45.909 - Unspecified asthma, uncomplicated Category: Medical Qualifiers: Asthma severity: mild Asthma persistence: intermittent Asthma complication type: with acute exacerbation Qualified Code(s): J45.21 - Mild intermittent asthma with (acute) exacerbation (3) Congenital bicuspid aortic valve: Code(s): Q23.1 - Congenital insufficiency of aortic valve Category: Medical (4) Myeloproliferative disorder: Comment: (previous tx w/hydroxyurea - now does theraputic phlebotomy monthly - follows with oncology) Code(s): D47.1 - Chronic myeloproliferative disease Category: Medical Plan 64 yo to establish care Past medical, surgical, social reviewed Back pain-referral physiatry Asthma/copd exacerbation-zpak prednisone albuterol. call for ldct follow up Labs ordered Orders: Orders Comprehensive Met. Panel Today D47.1 - Chronic myeloproliferative disease, Z13.0 - Encounter for screening for diseases of the blood and blood-forming organs and certain disorders involving the immune mechanism, Z13.220 - Encounter for screening for lipoid disorders, Z13.228 - Encounter for screening for other metabolic disorders Lipid Panel with Reflex Today D47.1 - Chronic myeloproliferative disease, Z13.0 - Encounter for screening for diseases of the blood and blood-forming organs and certain disorders involving the immune mechanism, Z13.220 - Encounter for screening for lipoid disorders, Z13.228 - Encounter for screening for other metabolic disorders Hemoglobin A1c Today D47.1 - Chronic myeloproliferative disease, Z13.0 - Encounter for screening for diseases of the blood and blood-forming organs and certain disorders involving the immune mechanism, Z13.220 - Encounter for screening for lipoid disorders, Z13.228 - Encounter for screening for other metabolic disorders Referrals Physical Medicine and Rehabilitation Referral M54.50 - Low back pain, unspecified Medications: New prednisone 40 mg (2 x 20 mg) PO DAILY 6 tabs 0RF azithromycin For 250 mg dose pack: take 500 mg today (day 1), then 250 mg for 4 days (days 2-5) PO 6 tabs 0RF albuterol sulfate 90 mcg/actuation 2 inhalations inhalation QID PRN 8.5 grams 0RF shortness of breath or wheezing J45.909 - Unspecified asthma, uncomplicated
[2025-01-17 10:45] VITALS: BP 130/80; PULSE 78; TEMP 36.8; O2SAT 98; BMI 27.0
--- OUTSIDE RECORDS SUMMARY | 2025-01-17 11:13 | XMS_ITS | Patient Health Record ---
Author Organization [facility] Address [address] [place] [id number] Care Team Providers Care Principal Investigator Name Role Phone Sergio Smith MD Primary Care Provider Joe Reed Jr Unavailable Allergies Allergen (clinical drug ingredient) Drug/Non Drug Allergy documented on EMR Reaction Allergy Type Onset Date Status Bee Sting Unknown Allergy Active Reason For Referral No Information Medications Medication SIG (Take, Route, Frequency, Duration) Notes Start Date End Date Status MiraLax (colon prep) 17 GM/SCOOP mixed with Gatorade or Crystal Light Orally begin at 5:00 p.m. the day before the procedure for 1 day 10/10/2022 Active Aspirin 325 MG 1 tablet Orally Once a day for 30 day(s) Active Immunizations Vaccine Route Administration Date Status Comme nts Influenza Unknown 06/23/2020 Administered Influenza Unknown 06/28/2022 Administered Social History Tobacco Use: Social History Observation Description Date Details (start date - stop date) Current Smoker NA - NA Tobacco Use/Smoking Question Answer Notes Patient is a current smoker Alcohol Screen Question Answer Notes Did you have a drink contain ing alcohol in the past year? Yes How often did you have a dri nk containing alcohol in the past year? 4 or more times a week (4 points) How many drinks did you have on a typical day when you were drinking in the past year? 5 or 6 drinks (2 points) How often did you have 6 or more drinks on one occasion in the past year? Monthly (2 points) Points 8 Interpretation Positive Section Notes: Smokes one pack per day, alc ohol uses 6 per day. Smokes one pack per day, alc ohol uses 6 per day. Problems Problem Type SNOMED Code ICD Code Onset Dates Problem Status W/U Status Risk Notes Problem 349308132 Colon cancer screening (Z12.11) Active confirmed Problem 784465272 Personal history of colonic polyps (Z86.010) Active confirmed Problem 319365875 Long-term use of aspirin therapy (Z79.82) Active confirmed Plan Of Treatment Future Test Test Name Order Date COLONOSCOPY 06/16/2021 COLONOSCOPY 10/10/2022 Insurance Providers Payer Name Payer Address Payer Phone Subscriber Number Group Number Insured Name Patient Relationship to Insured Coverage Start Date Coverage End Date [facility] [address] [address] [place], [place] [id number] DOREEN CASILLAS Self - patient is the insured Medical (General) History Medical History History ICD Code prostate cancer, stage III, contained to prostate. myloproliferative disorder, elevated platelets and red blood cell, previous treatment with hydroxyurea and watery Colon polyps, colonoscopy , 18 adenomas, one with high-grade dysplasia, one year followup Congenital bicuspid aortic valve Surgical History Surgery Date(Month/Year) lumbar 1987 Prostatectomy 2008 hernia repair
== END 2025-01-17 11:14 | disposition home or self-care (01) ==
LOC: HO.HMCHD 10:26
PROVIDERS: PCP Internal Medicine; Visit Provider Internal Medicine
DX: M54.50 Low back pain, unspecified (principal); G89.29 Other chronic pain; J45.21 Mild intermittent asthma with (acute) exacerbation; Q23.1 Congenital insufficiency of aortic valve; D47.1 Chronic myeloproliferative disease

== ENCOUNTER → 2025-01-17 10:26 | Outpatient (BNVA) | payer OTHER, SELFPAY | PROVIDERS: PCP Internal Medicine; Visit Provider Internal Medicine | DX: M54.50 Low back pain, unspecified (principal); G89.29 Other chronic pain; J45.21 Mild intermittent asthma with (acute) exacerbation; Q23.1 Congenital insufficiency of aortic valve; D47.1 Chronic myeloproliferative disease | CPT/HCPCS: 99202 ==

== ENCOUNTER 2025-07-18 08:57 | Outpatient (AMB) | payer OTHER, SELFPAY ==
--- NOTE | 2025-07-18 09:20 | MHC.PC.OV ---
Vital Signs 07/18/25 09:24 Height 5 ft 10.47 in Weight 191 lb BMI 27.0 BP 140/88 H Blood Pressure Location Lt brachial Position Sitting Respiration 18 Pulse 78 Pulse Source Pulse Oximeter Temp 98.7 F Temp Source Temporal Artery Scan Pulse Oximetry (%) 95 Oxygen Delivery Method Room Air Intake Visit Reasons: 6 Mo F/U Inspector Agricultural Commodities Required: No Accompanied by: Self / Same As Patient Allergies bee pollen (bee stings) Allergy (Unknown, Verified 07/18/25 09:22) Unknown Medication List - Last Reconciled 07/18/25 by Fredo Bassett MD aspirin 325 mg PO DAILY nicotine apply 1-21 mg NICOTINE PATCH daily for 28 days; follow with 1-14 mg PATCH daily for 14 days, then 1-7mg PATCH daily for 14 days transdermal Tobacco use date assessed: 01/17/25 Fall risk assessment: No Falls in past year Last assessed Fall Risk: 07/18/25 Dental Screening Dental Screen Date: 01/17/25 HPI HPI Comments History of Present Illness Details History of Present Illness The patient is a 65 year old male presenting with numbness in both hands. He reports that this issue has been ongoing for years, causing difficulty with fine motor skills such as buttoning his shirt. The sensation affects the first three and a half fingers of his hands but does not involve any pain. A prior nerve conduction study confirmed carpal tunnel syndrome, but he did not receive treatment due to a change in providers. He has a history of myeloproliferative disorder, for which his platelet count was almost a million. He was treated with hydroxyurea for six to seven years, and his hands had previously turned black. He is currently followed by Dr. Lara at [facility] for this condition, and his blood counts have reportedly stabilized. The patient has a history of prostate cancer, for which he underwent radiation therapy. He is monitored by Dr. Law every six months. His cardiac history includes a diagnosis of mild aortic stenosis with a tri-leaflet aortic valve, for which he sees Dr. Armando Saul at [facility] and has an echocardiogram annually. His blood pressure is typically around 124/70 mmHg but was in the 140s today. The patient has a history of smoking since he was 19 or 20 years old and currently shares one pack of cigarettes per day with another person. He has been told he has COPD and previously participated in annual lung cancer screenings, which he has not done since starting radiation. For gastrointestinal health, he had a colonoscopy with Dr. Bundy where 19 polyps were removed. A subsequent colonoscopy was clear, and his next one is not due until 2027. Medical History: - Bilateral Carpal Tunnel Syndrome: Diagnosed via EMG. - Prostate Cancer: Status post-radiation therapy. - Myeloproliferative Disorder: Previously treated with hydroxyurea for approximately 6-7 years. - Mild Aortic Stenosis: Followed by cardiology. - Chronic Obstructive Pulmonary Disease (COPD) - History of Colon Polyps: Status post-polypectomy of 19 polyps. - Borderline Hypertension Surgical History: - Colonoscopy with polypectomy of 19 polyps. Medications: - Aspirin 325 mg: Taken intermittently as a blood thinner. 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 - Echocardiogram (annual): Last result showed a tri-leaflet aortic valve with mild aortic stenosis. - Colonoscopy: First procedure removed 19 polyps; a subsequent one was clear. Social History - Tobacco Use: The patient has been smoking since age 19 or 20. - He currently shares one pack of cigarettes per day between two people. - He previously tried nicotine patches without success but is willing to try again. - Diet: The patient reports having consumed a lot of salt lately. Health Maintenance - Lung Cancer Screening: Advised to resume annual screening due to extensive smoking history; will initiate a re-referral. - Colonoscopy: Patient is up to date and is scheduled for his next screening in 2027. - Smoking Cessation: Discussed risks and provided a prescription for tapering-dose nicotine patches. - Diet: Advised to reduce salt intake to help manage blood pressure. - Lab Monitoring: Ordered comprehensive blood work to check electrolytes and cholesterol. Patient was informed and verbally consented to the use of an ambient scribe for clinic note documentation during this visit. Vital signs reviewed. Comprehensive history, review of systems, and physical exam completed. Medications, allergies, and problem list reviewed and updated. Counseling provided on nutrition, regular exercise, sleep hygiene, and moderation of alcohol use. Discussed age-appropriate screenings (mammogram, colonoscopy, Pap, bone density) and immunizations (flu, COVID, shingles, Tdap). Screened for depression, fall risk, and home safety; no current concerns. Discussed stress management, dental and vision care, and importance of ongoing preventive follow-up. Routine labs ordered for metabolic and lipid screening. Patient educated on healthy lifestyle and agrees with the plan. [facility] Medical History (Updated 07/18/25 @ 09:51 by Fredo Bassett MD) Elevated blood pressure reading in office with white coat syndrome, without diagnosis of hypertension Carpal tunnel syndrome History of prostate cancer Myeloproliferative disorder Congenital bicuspid aortic valve Tubular adenoma of colon (~2020) Nicotine dependence, cigarettes, uncomplicated Surgical History History of left inguinal hernia repair (~2021) History of robot-assisted laparoscopic radical prostatectomy (~2018) History of colonoscopy (~11/15/22) History of lumbar discectomy (~1986) Family History Mother No problems noted. Father No problems noted. Social History Housing: House Patient Tobacco Use Status: Current everyday Tobacco user Tobacco use type: Cigarette Cigarette Packs Per Day: 1 Cigarettes Per Day: 20.0 Years Smoked: onset 17, 1ppd x 44yrsm 40pyh e-Cigarette/Vaping Use: Currently Using service: No Current occupational status: retired Cognitive needs: No Hearing needs: Yes (both hear hearing aids. ) Vision needs: No Questionnaire Thrive Questionnaire Date Thrive assessed: 01/17/25 XUAN-7 AMB Questionnaire XUAN-7 Date XUAN - 7 assessed: 01/17/25 Source: Developed by Drs. David Guerrero, Roselyn Nuñez, Norbert Amador and colleagues, with an educational ayla from [employer]. Review of Systems Narrative Review of Systems - Neurological: Reports chronic numbness and tingling in both hands, particularly the first 3.5 fingers, leading to difficulty with fine motor skills like buttoning a shirt. - Denies pain associated with the hand numbness. - Constitutional: Reports feeling pretty good but not 100%. All systems reviewed & are unremarkable except as reviewed in HPI and above Physical exam (Primary Care) Vital Signs: Last Vital Signs Temp 98.7 F 07/18/25 09:24 Pulse 78 07/18/25 09:24 Resp 18 07/18/25 09:24 BP 140/88 H 07/18/25 09:24 Pulse Ox 95 07/18/25 09:24 Oxygen Delivery Method Room Air 07/18/25 09:24 Care Plan Goal for BP management: Within Normal Limits Next steps: If eelvated at next visit will start antihypertensives BMI result Body Mass Index 27.0 Tobacco/Smoking Status: Tobacco use Status Tobacco use date assessed 01/17/25 07/18/25 09:21 Patient Tobacco Use Status Current everyday Tobacco 07/18/25 09:21 Tobacco use type Cigarette 07/18/25 09:21 e-Cigarette/Vaping Use Currently Using 07/18/25 09:21 Are you ready to quit: Yes Tobacco cessation counseling provided: Yes Relapse Prevention: discussed the importance of a supportive environment and discussed extending NRT Number of minutes spent counselin CPT code: 73225 - 4-10 Minutes Thrive Assessment: Date of Thrive Assessment Date Thrive assessed 01/17/25 07/18/25 09:21 Narrative Physical Exam General: +Alert and oriented, Well nourished, No acute distress. Eye: Pupils are equal, round and reactive to light, Intact accommodation, Extraocular movements are intact, Normal conjunctiva, Vision unchanged. HENT: Normocephalic, Atraumatic, Tympanic membranes are clear, Normal hearing, Oral mucosa is moist, No pharyngeal erythema, Ear canals patent. Respiratory: Lungs CTA bilaterally, No wheeze, Respirations are non-labored. Cardiovascular: Regular rate, Regular rhythm, S1 auscultated, S2 auscultated, No murmur, Good pulses equal in all extremities, Normal peripheral perfusion, No edema. Gastrointestinal: Soft, Non-tender, Non-distended, Normal bowel sounds, No organomegaly. Musculoskeletal: Normal range of motion, Normal strength, No tenderness, No swelling, No deformity, Normal gait. Integumentary: Warm, Dry, [place], Intact. Neurologic: Alert, Oriented, Normal sensory, Normal motor function, No focal defects, Cranial Nerves II-XII are grossly intact, Normal deep tendon reflexes. 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 Psychiatric: Cooperative, Appropriate mood & affect, Normal judgment. Coding Level of Care Code Est Pt Level 4 (62431) Complex visit Add On G2211 Diagnoses Bilateral carpal tunnel syndrome G56.03 Laterality: bilateral Nicotine dependence, cigarettes, uncomplicated F17.210 Elevated blood pressure reading in office with white coat syndrome, without diagnosis of hypertension R03.0 Congenital bicuspid aortic valve Q23.1 Myeloproliferative disorder D47.1 History of prostate cancer Z85.46 Additional Codes Vital Signs *Quality* - CPT code: 44794 - 4-10 Minutes ([id number]) Assessment & Plan Assessment & Plan (1) Carpal tunnel syndrome: Comment: - The patient's symptoms of numbness and functional impairment are consistent with carpal tunnel syndrome, which is confirmed by a prior EMG showing moderate to severe neuropathy. - A referral will be placed to a hand surgeon for evaluation and management. Code(s): G56.00 - Carpal tunnel syndrome, unspecified upper limb Category: Medical Qualifiers: Laterality: bilateral Qualified Code(s): G56.03 - Carpal tunnel syndrome, bilateral upper limbs (2) Nicotine dependence, cigarettes, uncomplicated: Comment: (current smoker, onset 17, 1ppd x 44yrs, 40pyh) - The patient has a long-standing history of smoking. - He was counseled on the risks, including worsening his myeloproliferative disorder. - He will be prescribed a tapering dose of nicotine patches to aid in cessation. Code(s): F17.210 - Nicotine dependence, cigarettes, uncomplicated Category: Medical (3) Elevated blood pressure reading in office with white coat syndrome, without diagnosis of hypertension: Comment: - The patient's blood pressure is borderline elevated today, possibly due to high salt intake. - No antihypertensive medication will be started at this time. - He was advised on a low-salt diet. - He will follow up in 3 months for a blood pressure recheck, and medication will be initiated if it remains high. Code(s): R03.0 - Elevated blood-pressure reading, without diagnosis of hypertension Category: Medical (4) Congenital bicuspid aortic valve: Comment: Follows with his feller operator at [facility] and most recent echo reviewed and stable Code(s): Q23.1 - Congenital insufficiency of aortic valve Category: Medical (5) Myeloproliferative disorder: Comment: (previous tx w/hydroxyurea - now does theraputic phlebotomy monthly - follows with oncology) - Currently managed with aspirin 325mg PRN Code(s): D47.1 - Chronic myeloproliferative disease Category: Medical (6) History of prostate cancer: Comment: (s/p surgery 2019) - Follows with urology every 6 months Code(s): Z85.46 - Personal history of malignant neoplasm of prostate Category: Medical Plan: Health Maintenance: - Lung Cancer Screening: Advised to resume annual screening due to extensive smoking history; will initiate a re-referral. - Colonoscopy: Patient is up to date and is scheduled for his next screening in 2027. - Smoking Cessation: Discussed risks and provided a prescription for tapering-dose nicotine patches. - Diet: Advised to reduce salt intake to help manage blood pressure. - Lab Monitoring: Ordered comprehensive blood work to check electrolytes and cholesterol. Patient was informed and verbally consented to the use of an ambient scribe for clinic note documentation during this visit. Plan I discussed with the patient that his symptoms of hand numbness are consistent with carpal tunnel syndrome, a diagnosis supported by his EMG from last year. I explained that a referral to a hand surgeon would be made to address this. We also discussed the critical importance of smoking cessation, especially given his history of myeloproliferative disorder, and I have prescribed nicotine patches to assist him. I reviewed the need to resume annual lung cancer screening and placed a referral. Regarding his elevated blood pressure, I recommended dietary salt reduction and a follow-up visit in three months to re-evaluate, at which point we will consider medication if it remains high. Finally, I ordered comprehensive blood work and informed him that I would contact him through the patient portal with any abnormal results requiring action. Orders: Orders Hemoglobin A1c Today Z00.00 - Encounter for general adult medical examination without abnormal findings, Z76.89 - Persons encountering health services in other specified circumstances HIV Ab/Ag Today Z00.00 - Encounter for general adult medical examination without abnormal findings, Z76.89 - Persons encountering health services in other specified circumstances Microalbumin, Random (w Creat) Today Z00.00 - Encounter for general adult medical examination without abnormal findings, Z76.89 - Persons encountering health services in other specified circumstances Syphilis Screen Today Z00.00 - Encounter for general adult medical examination without abnormal findings, Z76.89 - Persons encountering health services in other specified circumstances TSH reflex Free T4 Today Z00.00 - Encounter for general adult medical examination without abnormal findings, Z76.89 - Persons encountering health services in other specified circumstances Complete Blood Count Auto Diff Today Z00.00 - Encounter for general adult medical examination without abnormal findings, Z76.89 - Persons encountering health services in other specified circumstances Comprehensive Met. Panel Today Z00.00 - Encounter for general adult medical examination without abnormal findings, Z76.89 - Persons encountering health services in other specified circumstances Hepatitis A,B,C Profile Today Z00.00 - Encounter for general adult medical examination without abnormal findings, Z76.89 - Persons encountering health services in other specified circumstances Lipid Panel Today Z00.00 - Encounter for general adult medical examination without abnormal findings, Z76.89 - Persons encountering health services in other specified circumstances Vitamin D 25-OH Total Today Z00.00 - Encounter for general adult medical examination without abnormal findings, Z76.89 - Persons encountering health services in other specified circumstances Referrals Hand Surgery Referral G56.00 - Carpal tunnel syndrome, unspecified upper limb Lung Cancer Screening Referral F17.210 - Nicotine dependence, cigarettes, uncomplicated Medications: New nicotine apply 1-21 mg NICOTINE PATCH daily for 28 days; follow with 1-14 mg PATCH daily for 14 days, then 1-7mg PATCH daily for 14 days transdermal 56 patches 0RF Patient Instructions: - A referral will be sent to a hand surgeon to evaluate and treat your hand numbness. - Please use the new prescription for nicotine patches to help you quit smoking. - We are arranging for you to get your lung cancer screening scheduled. - Please have the blood work done today at the lab [place] the [place]. - Reduce the amount of salt in your diet to help lower your blood pressure. - Please schedule a follow-up appointment in three months to recheck your blood pressure. - I will contact you through the patient portal if your lab results require new medication, such as for cholesterol.
[2025-07-18 09:24] VITALS: BP 140/88; PULSE 78; RESP 18; TEMP 37.1; O2SAT 95; BMI 27.0
== END 2025-07-18 09:53 | disposition home or self-care (01) ==
LOC: HO.HMCHD 08:58
PROVIDERS: PCP Student in an Organized Health Care Education/Training Program; Visit Provider Physician Assistant
DX: G56.03 Carpal tunnel syndrome, bilateral upper limbs (principal); F17.210 Nicotine dependence, cigarettes, uncomplicated; R03.0 Elevated blood-pressure reading, without diagnosis of hypertension; Q23.1 Congenital insufficiency of aortic valve; D47.1 Chronic myeloproliferative disease; Z85.46 Personal history of malignant neoplasm of prostate

== ENCOUNTER → 2025-07-18 08:57 | Outpatient (BNVA) | payer OTHER, SELFPAY | PROVIDERS: PCP Student in an Organized Health Care Education/Training Program; Visit Provider Physician Assistant | DX: G56.03 Carpal tunnel syndrome, bilateral upper limbs (principal); F17.210 Nicotine dependence, cigarettes, uncomplicated; Q23.1 Congenital insufficiency of aortic valve; R03.0 Elevated blood-pressure reading, without diagnosis of hypertension; D47.1 Chronic myeloproliferative disease; Z85.46 Personal history of malignant neoplasm of prostate | CPT/HCPCS: 99212 ==